=== PATIENT | female | born 1980 | race Caucasian/White ===

== ENCOUNTER 2020-01-10 01:29 | Emergency (ER) | payer OTHER ==
[2020-01-10] MEDS ORDERED: Ibuprofen 600 MG Tab PO ONE (02:03)
[2020-01-10 02:05] VITALS: BP 122/77; PULSE 96
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
== END 2020-01-10 02:15 | disposition home or self-care (01) ==
LOC: JP.ED 01:29
DX: S06.0X0A Concussion without loss of consciousness, initial encounter (principal); Z88.8 Allergy status to other drugs, medicaments and biological substances; Z88.5 Allergy status to narcotic agent; Y04.2XXA Assault by strike against or bumped into by another person, initial encounter
CPT/HCPCS: 99283; A9270

== ENCOUNTER 2021-01-12 10:22 | Emergency (ER) | payer OTHER ==
[2021-01-12] MEDS ORDERED: Benzonatate 100 MG Cap PO ONE (11:17)
--- NOTE | 2021-01-12 11:26 | EDM.PDOC ---
ED HPI GENERAL MEDICAL PROBLEM - General Chief Complaint: Respiratory Problem Stated Complaint: COVID POSITIVE Time Seen by Provider: 01/12/21 11:08 Source of Information: Reports: Patient, RN Notes Reviewed History Limitations: Reports: No Limitations - History of Present Illness INITIAL COMMENTS - FREE TEXT/NARRATIVE: 40-year-old female presents emergency department day complaint of cough painful she was diagnosed with COVID-19 2 days prior has had symptoms for 9 days. 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: Psychiatric History: Reports: Anxiety, Panic Attack Dermatologic History: Reports: Psoriasis - Infectious Disease History Infectious Disease History: Reports: Chicken Pox - Past Surgical History Female Surgical History: Reports: Section Musculoskeletal Surgical History: Reports: Shoulder Surgery Social & Family History - Tobacco Use Tobacco Use Status *Q: Never Tobacco User - Caffeine Use Caffeine Use: Reports: None - Alcohol Use Days Per Week of Alcohol Use: 2 Number of Drinks Per Day: 3 Total Drinks Per Week: 6 - Recreational Drug Use Recreational Drug Use: No ED ROS GENERAL - Review of Systems Review Of Systems: See Below Constitutional: Reports: Fever, Weakness, Fatigue HEENT: Reports: No Symptoms Respiratory: Reports: Shortness of Breath, Cough, Sputum Cardiovascular: Reports: Dyspnea on Exertion GI/Abdominal: Reports: No Symptoms ED EXAM, GENERAL - Physical Exam Exam: See Below Exam Limited By: No Limitations General Appearance: Alert, WD/WN, No Apparent Distress Respiratory/Chest: No Respiratory Distress, Lungs Clear, Normal Breath Sounds, No Accessory Muscle Use, Chest Non-Tender Cardiovascular: Regular Rate, Rhythm, No Murmur Course - Vital Signs Last Recorded V/S: Last Vital Signs Temp 97.1 F 01/12/21 10:58 Pulse 67 01/12/21 13:02 Resp 16 01/12/21 12:30 BP 131/77 01/12/21 13:02 Pulse Ox 96 01/12/21 12:30 - Orders/Labs/Meds Orders: Active Orders 24 hr Category Date Time Status Acetaminophen [TylenoL] Med 01/12/21 12:00 Active 650 mg PO ONETIME PRN EPINEPHrine [Adrenalin] Med 01/12/21 12:00 Active 0.3 mg IM ONETIME PRN Famotidine [Pepcid] Med 01/12/21 12:00 Active 20 mg IV ONETIME PRN Sodium Chloride 0.9% [Normal Saline] 1,000 ml Med 01/12/21 12:30 Active IV ASDIRECTED diphenhydrAMINE [Benadryl] Med 01/12/21 12:00 Active 50 mg IVPUSH ONETIME PRN methylPREDNISolone Sod Succ [Solu-MEDROL] Med 01/12/21 12:00 Active 125 mg IVPUSH ONETIME PRN Medication Orders Acetaminophen (Acetaminophen 325 Mg Tab) 650 mg PO ONETIME PRN PRN Reason: HEADACHE,CHILLS Diphenhydramine HCl (Diphenhydramine 50 Mg/Ml Sdv) 50 mg IVPUSH ONETIME PRN PRN Reason: ALLERGIC RXN Epinephrine HCl (Epinephrine 1 Mg/Ml Sdv) 0.3 mg IM ONETIME PRN PRN Reason: ALLERGIC RXN Famotidine (Famotidine 20 Mg/2 Ml Sdv) 20 mg IV ONETIME PRN PRN Reason: ALLERGIC RXN Sodium Chloride (Normal Saline) 1,000 mls @ 25 mls/hr IV ASDIRECTED KATHRYN Last Admin: 01/12/21 12:32 Dose: 25 mls/hr Documented by: EVON Methylprednisolone Sodium Succinate (Methylprednisolone Sodium Succinate 125 Mg/2 Ml Sdv) 125 mg IVPUSH ONETIME PRN PRN Reason: ALLERGIC RXN Meds: Medications Generic Name Dose Route Start Last Admin Trade Name Freq PRN Reason Stop Dose Admin Acetaminophen 650 mg 01/12/21 12:00 Acetaminophen 325 Mg Tab PO ONETIME PRN HEADACHE,CHILLS Diphenhydramine HCl 50 mg 01/12/21 12:00 Diphenhydramine 50 Mg/Ml Sdv IVPUSH ONETIME PRN ALLERGIC RXN Epinephrine HCl 0.3 mg 01/12/21 12:00 Epinephrine 1 Mg/Ml Sdv IM ONETIME PRN ALLERGIC RXN Famotidine 20 mg 01/12/21 12:00 Famotidine 20 Mg/2 Ml Sdv IV ONETIME PRN ALLERGIC RXN Sodium Chloride 1,000 mls @ 25 mls/hr 01/12/21 12:30 01/12/21 12:32 Normal Saline IV 25 mls/hr ASDIRECTED KATHRYN Administration Methylprednisolone Sodium Succinate 125 mg 01/12/21 12:00 Methylprednisolone Sodium Succinate 125 Mg/2 Ml Sdv IVPUSH ONETIME PRN ALLERGIC RXN Discontinued Medications Generic Name Dose Route Start Last Admin Trade Name Freq PRN Reason Stop Dose Admin Benzonatate 200 mg 01/12/21 11:17 01/12/21 11:30 Benzonatate 100 Mg Cap PO 01/12/21 11:18 200 mg ONETIME ONE Administration CASIRIVIMAB/IMDEVIMAB 10 ml/ 160 mls @ 310 mls/hr 01/12/21 12:00 01/12/21 12:18 Sodium Chloride IV 01/12/21 12:30 310 mls/hr ONETIME ONE Administration Departure - Departure Time of Disposition: 13:18 Disposition: Home, Self-Care 01 Condition: Fair Clinical Impression: COVID-19 - Discharge Information Instructions: COVID-19: How to Protect Yourself and Others - [facility], 10 Things You Can Do to Manage Your COVID-19 Symptoms at Home - CDC (11/11/2019) Referrals: Radha Simeon PA [Primary Care Provider] - Forms: ED Department Discharge Additional Instructions: Continue symptomatic care, follow-up with primary care as needed, prescription for cough medicine use as needed call return to the emergency department worsening of symptoms, Sepsis Event Note (ED) - Focused Exam Vital Signs: Vital Signs Temp Pulse Resp BP Pulse Ox 01/12/21 13:02 67 131/77 01/12/21 12:43 69 117/69 01/12/21 12:30 66 16 118/72 96 01/12/21 10:58 97.1 F 81 18 119/88 97 - My Orders Last 24 Hours: My Active Orders 01/12/21 12:00 Acetaminophen [TylenoL] 650 mg PO ONETIME PRN EPINEPHrine [Adrenalin] 0.3 mg IM ONETIME PRN Famotidine [Pepcid] 20 mg IV ONETIME PRN diphenhydrAMINE [Benadryl] 50 mg IVPUSH ONETIME PRN methylPREDNISolone Sod Succ [Solu-MEDROL] 125 mg IVPUSH ONETIME PRN 01/12/21 12:30 Sodium Chloride 0.9% [Normal Saline] 1,000 ml IV ASDIRECTED - Assessment/Plan Last 24 Hours: My Active Orders 01/12/21 12:00 Acetaminophen [TylenoL] 650 mg PO ONETIME PRN EPINEPHrine [Adrenalin] 0.3 mg IM ONETIME PRN Famotidine [Pepcid] 20 mg IV ONETIME PRN diphenhydrAMINE [Benadryl] 50 mg IVPUSH ONETIME PRN methylPREDNISolone Sod Succ [Solu-MEDROL] 125 mg IVPUSH ONETIME PRN 01/12/21 12:30 Sodium Chloride 0.9% [Normal Saline] 1,000 ml IV ASDIRECTED Plan: Assessment Acuity = acute Site and laterality = viral syndrome Etiology = COVID-19 Manifestations = cough Location of injury = Home Lab values = none Plan Because she is 9 days out from her symptomatic onset and a positive diagnosis COVID-19 she is a candidate for monoclonal antibody therapy this has been set up this will be done today. Follow-up primary care as needed This note was dictated using [employer] voice recognition software please call with any questions on syntax or grammar.
[2021-01-12] MEDS ORDERED: methylPREDNISolone Sodium Succinate 125 MG/2 ML SDV IVPUSH PRN (12:00)
[2021-01-12] MEDS ORDERED: Acetaminophen 325 MG Tab PO PRN (12:00)
[2021-01-12] MEDS ORDERED: Famotidine 20 MG/2 ML SDV IV PRN (12:00)
[2021-01-12] MEDS ORDERED: CASIRIVIMAB/IMDEVIMAB 10 ML in Sodium Chloride 0.9% 150 ML IV ONE (12:00)
[2021-01-12] MEDS ORDERED: diphenhydrAMINE 50 MG/ML SDV IVPUSH PRN (12:00)
[2021-01-12] MEDS ORDERED: EPINEPHrine 1 MG/ML SDV IM PRN (12:00)
[2021-01-12] MEDS ORDERED: Sodium Chloride 0.9% 1,000 ML IV SCH (12:30)
[2021-01-12 14:03] VITALS: BP 128/71; PULSE 65
== END 2021-01-12 14:10 | disposition home or self-care (01) ==
LOC: JP.ED 10:22
DX: U07.1 COVID-19 (principal); Z88.5 Allergy status to narcotic agent
CPT/HCPCS: 99284; A9270; J7030; M0243; Q0243